=== PATIENT | male | born 1980 | race Caucasian/White ===

== ENCOUNTER 2018-04-18 22:03 | Emergency (ER) | payer MEDICAID ==
[2018-04-18] MEDS: ACETAMINOPHEN 325 MG TAB PO (22:57)
[2018-04-18] MEDS: PROMETHAZINE/CODEINE 5ML CUP PO (22:57)
== END 2018-04-18 23:12 | disposition home or self-care (01) ==
LOC: FTE 22:03
DX: R51 Headache (principal); R50.9 Fever, unspecified; R05 Cough
CPT/HCPCS: 99283; Z7502